=== PATIENT | male | born 1940 | race Caucasian/White ===

== ENCOUNTER 2019-01-23 12:33 | Inpatient (IN) | payer MEDICARE, OTHER ==
[~2019-01-23] VITALS: Ht 175.2 cm; Wt 103.6 kg
[~2019-01-23 12:33] MED LIST: ALDACTONE25 M1 PO; AMLODIPINE BESYL5 MG PO; ASPIRIN CHEWABL81 MG PO; COUMADIN4 M2 PO; GLUCOPHAGE1000 MG PO; LASIX40 MG PO; LEVOXYL112 MCG PO; LOPRESSOR25 MG PO; PRANDIN1 MG PO; VITAMIN B12-FO1 EACH PO; ZESTRIL30 M3 PO
[2019-01-23 12:34] VITALS: BP 135/51
[2019-01-23 13:58] VITALS: BP 142/58
[2019-01-23 15:06] LABS: BASO % 0.2 % (0.0-1.0); EOS # 0.1 10*3/uL (0.0-0.4); HEMATOCRIT 32.8 % (42.0-52.0); LYMPH # 0.9 10*3/uL (1.3-4.4); LYMPH % 9.1 % (27.0-41.0); MEAN CELL VOLUME 91.4 fl (80.0-94.0); MEAN CORPUSCULAR HGB 27.9 pg (27.0-31.0); MEAN CORPUSCULAR HGB CONC 30.5 g/dl (33.0-37.0); MEAN PLATELET VOLUME 11.1 fl (9.6-12.3); MONO # 1.1 10*3/uL (0.1-1.0); MONO % 11.9 % (3.0-9.0); NEUT # 7.4 10*3/uL (2.3-7.9); NEUT % 77.3 % (47.0-73.0); PLATELET COUNT AUTOMATED 199 10*3/uL (130-400); RED BLOOD COUNT 3.59 10*6/uL (4.50-5.90); WHITE BLOOD COUNT 9.6 10*3/uL (4.8-10.8)
[2019-01-23 15:22] LABS: ALBUMIN 3.2 gm/dl (3.1-4.5); CREATININE 1.68 mg/dL (0.70-1.30); POTASSIUM 4.7 mmol/L (3.5-5.1); TOTAL PROTEIN 7.1 gm/dL (6.4-8.2)
[2019-01-23 15:30] VITALS: BP 150/60
[2019-01-23] MEDS ORDERED: ALLOPURINOL300 MG PO (16:30)
[2019-01-23] MEDS ORDERED: ANORO ELLIPTA1 EACH INH (16:34)
[2019-01-23] MEDS ORDERED: PROAIR HFA8.5 GM INH (16:35)
--- NOTE | 2019-01-23 16:38 | NUR ---
MSADMTime: N A 78 year old MALE admitted to 4E under services of JÚNIOR SUGGS DO. Pt. arrived via bed from ER. Chief complaint: KNEE SWELLING/PAIN. JUANIS ZENDEJAS
[2019-01-23 20:00] VITALS: BP 112/59
--- NOTE | 2019-01-23 22:45 | NUR ---
PATIENT RESTING IN BED WITH EYES OPEN WATCHING TV. DENIES COMPLAINTS OF PAIN OR DISCOMFORT. RESPIRATIONS REGULAR AND NON-LABORED ON 3L O2 VIA N/C. LUNGS DIMINISHED BILATERALLY. BED ALARM ON. NO SIGNS OR SYMPTOMS OF DISTRESS NOTED. VITAL SIGNS STABLE. ABDOMEN SOFTLY DISTENDED WITH NORMOACTIVE BOWEL SOUNDS. 3+ BILATERAL LOWER EXTREMITY EDEMA NOTED. WILL CONTINUE TO MONITOR. CALL LIGHT IN REACH.
[2019-01-24] VITALS: BP 114/53
[2019-01-24 06:24] LABS: BASO % 0.3 % (0.0-1.0); EOS # 0.3 10*3/uL (0.0-0.4); EOS % 4.1 % (1.0-4.0); HEMATOCRIT 30.3 % (42.0-52.0); HEMOGLOBIN 9.3 g/dl (14.0-18.0); LYMPH % 12.9 % (27.0-41.0); MEAN CELL VOLUME 92.7 fl (80.0-94.0); MEAN CORPUSCULAR HGB 28.4 pg (27.0-31.0); MEAN CORPUSCULAR HGB CONC 30.7 g/dl (33.0-37.0); MEAN PLATELET VOLUME 11.3 fl (9.6-12.3); MONO # 1.1 10*3/uL (0.1-1.0); MONO % 13.8 % (3.0-9.0); NEUT # 5.4 10*3/uL (2.3-7.9); NEUT % 68.5 % (47.0-73.0); PLATELET COUNT AUTOMATED 202 10*3/uL (130-400); RED BLOOD COUNT 3.27 10*6/uL (4.50-5.90); RED CELL DISTRI WIDTH 15.2 % (0-14.5); WHITE BLOOD COUNT 7.9 10*3/uL (4.8-10.8)
[2019-01-24 06:51] LABS: ALBUMIN 2.9 gm/dl (3.1-4.5); CREATININE 1.62 mg/dL (0.70-1.30); FREE T4 1.18 ng/dl (0.76-1.46); PHOSPHOROUS 3.5 mg/dL (2.5-4.9); POTASSIUM 4.7 mmol/L (3.5-5.1); TOTAL PROTEIN 6.8 gm/dL (6.4-8.2)
[2019-01-24 06:56] LABS: THYROID STIM HORMONE (HS) 3.47 uIU/ml (0.358-4.75)
[2019-01-24 07:01] LABS: ACT PARTIAL THROMBO TIME 56.9 SECONDS (20.0-32.1)
[2019-01-24 08:00] VITALS: BP 119/50
[2019-01-24 08:20] LABS: VITAMIN D, 25-HYDROXY 19.7 ng/mL (30-100)
[2019-01-24 12:00] VITALS: BP 112/49
--- NOTE | 2019-01-24 14:51 | NUR ---
PT MEDICATED WITH PRN MORPHINE FOR C/O RIGHT KNEE PAIN. PT RATES PAIN 8/10. WILL MONITOR.
[2019-01-24 16:00] VITALS: BP 117/62
--- NOTE | 2019-01-24 16:00 | NUR ---
PRN MORPHINE EFFECTIVE PER PT.
[2019-01-24 20:00] VITALS: BP 120/55
--- NOTE | 2019-01-24 22:30 | NUR ---
PATIENT RESTING IN BED WITH EYES OPEN WATCHING TV. O2 ON AT 3L N/C. RESPIRATIONS REGULAR AND NON-LABORED. IV FLUIDS INFUSING AT 100CC/HR X1 BAG. DENIES COMPLAINTS OF PAIN OR DISCOMFORT AT THIS TIME. BED ALARM ON. PATIENT USES URINAL AND IS ALSO INCONTINENT OF URINE. NO SIGNS OR SYMPTOMS OF DISTRESS NOTED. WILL CONTINUE TO MONITOR. CALL LIGHT IN REACH.
[2019-01-25] VITALS: BP 125/49
--- NOTE | 2019-01-25 01:21 | NUR ---
24 HR chart check completed.
--- NOTE | 2019-01-25 06:00 | NUR ---
PATIENT REFUSED TO LET ME DO A BEDSIDE GLUCOSE TEST ON HIM. SAID HE IS DONE WITH EVERYTHING, THAT WE ARE DOING NOTHING FOR HIM AND HE IS LEAVING TODAY BECAUSE HE IS JUST DETERIORATING AND GETTING WORSE. MEDICATED WTIH MORPHINE FOR BACK PAIN AND BREATHING. WILL CONTINUE TO MONITOR. CALL LIGHT IN REACH.
[2019-01-25 08:00] VITALS: BP 151/61
--- NOTE | 2019-01-25 09:00 | NUR ---
Train Clerk in to talk to patient. Patient states lives at home with . There are few steps in the home. Physician: stalin laguna [facility] [place] [facility] services: none Patient's level of ADLs: MINIMAL ASSIST Patient has working utilities: all working DME: home oxygen, portable tanks from [facility] [facility], walker Follow-up physician's appointment after d/c: will be made by hospitalist nurse director upon discharge Does patient want to access PORTAL?: no Discharge plan discussed with patient, present, he lives at home with , uses a walker for ambulation and requires minimal assistanc with adls, stated lately he has be unable to ambulate, discussed with them a short term group home for rehab and they both were in agreement, patient stated he had been at [facility] a few months ago and would like to return, asked for a second choice also and they chose [facility] community development planner will make referrals, case management will follow. RICARDO CHAWLA
--- NOTE | 2019-01-25 10:10 | NUR ---
PHYSICAL THERAPY PT mayelin completed full report to follow, reccomend SNF at discharge discussed with pt and . Pt is moderate level of complexity-[id number]. PT to work on transfers, amb, strengthening, and ROM. Thank you. Annette Cooper PT
--- NOTE | 2019-01-25 10:30 | NUR ---
Occupational Therapy evaluation completed on 4 with full eval to follow. Precautions include fall risk,bed alarm,unsteady in standing, ww use for transfers,right knee pain/edema,high complexity level [id number]. Recommend OT per POC and SNF to enable return home w/ at max ability to function. Thank you. Jolie Pearson OTR/l
[2019-01-25 12:00] VITALS: BP 133/60
--- NOTE | 2019-01-25 12:04 | NUR ---
Nursing screen received and Occupational Therapy referral received. Thank you. Tam Pearson OTR/l
--- NOTE | 2019-01-25 13:10 | NUR ---
Patient requesting a referral to [facility], contacted facility and faxed referral. Requires a 3 night stay; waiting on review/acceptance.
--- NOTE | 2019-01-25 13:35 | NUR ---
OT NOTE Attempted to see pt this P.M. for OT session and upon arrival pt was sitting upright in the recliner while pt's was assisting with self care. Requesting to check back at a later time/date, no treatment provided at this time. Will continue with POC as able. STEVEN Hernadez/Karla
[2019-01-25 16:00] VITALS: BP 145/61
--- NOTE | 2019-01-25 18:34 | NUR ---
PHYSICAL THERAPY Nursing screen received and chart reviewed. Physical therapy order received and completed. Thank you. Maki Leslie,PT,DPT
[2019-01-25 20:00] VITALS: BP 145/50
--- NOTE | 2019-01-25 22:09 | NUR ---
PT REQUESTING "SLEEPING PILL" MEDICATED PER ORDER. WILL CONTINUE TO MONITOR FOR RELIEF. VOICES NO OTHER CONCERNS AT THIS TIME. RESTING IN BED. CALL LIGHT WITHIN REACH
--- NOTE | 2019-01-25 23:14 | NUR ---
RESTORIL EFFECTIVE. PATIENT SLEEPING. CALL LIGHT WITHIN REACH
[2019-01-26] VITALS: BP 135/63
--- NOTE | 2019-01-26 01:17 | NUR ---
Patient resting quietly in bed with no c/o discomfort. Respirations easy and regular. Vital signs stable. No overt distress. Bed alarm on. Call light within reach. VIRY STEPHENS
--- NOTE | 2019-01-26 01:47 | NUR ---
24 HR chart check completed.
--- NOTE | 2019-01-26 03:48 | NUR ---
Patient sleeping. Respirations relaxed and easy. Siderails up . [place] on. Bed alarm on. Call light within reach. HISSOM,VIRY
--- NOTE | 2019-01-26 07:22 | NUR ---
Patient has been accepted to [facility], 3 night stay complete. Patient can go when medically stable for discharge.
--- NOTE | 2019-01-26 07:35 | NUR ---
PHYSICAL THERAPY Patient seen this am 1:1 for therapy visit and was sitting up in bedside chair upon therapist arrival. Patient identified by name / and presented with continuos O2-3L via NC. Patient voices no new c/o's and performed sit to stand transfer from low chair surface with MOD A. Patient demonstrated increased difficulty upon initial rise secondary to POOR transfer technique and needed v/c for proper hand placement. Patient improved to MIN A upon second trial and ambulated with use of wh walker, CGA, 40'x 1, demonstrating "waddling" gait pattern, decreased stride and unsteady balance during all turns. Patient was also very cautious for fear of falling and returned to bedside chair with mild fatigue. Patient remained in chair with call light, tray table and telephone. Will continue per POC as tolerated, total treatment time 14 minutes. Fab Green, BROKERAGE COORDINATOR
--- NOTE | 2019-01-26 07:45 | NUR ---
OT NOTE Pt was seen this A.M. 1:1 for 20 minute OT session. Upon arrival pt was sitting upright in the recliner. Pt identified by name and and had no complaints at this time. Pt presented to therapy with continuous 3L-O2 via NC which he remained on throughout the entire session. Pt completed sit to stand transfer from chair level with modA and use of w/w for UE support. Educated pt on proper hand placement and improving his technique for increased I. Challenged pt's static standing tolerance needed for increased I in self care tasks and functional transfers, pt was able to tolerate aprox 3 mnutes at a time before sitting due to fatigue. Pt then completed functional mobility to the bathroom and back with CGA and use of w/w. Throughout pt required verbal prompts for taking bigger steps and was educated on safe turning technique due to LOB occuring to the R while turning that required Alexey to correct. Pt required two standing rest breaks throughout due to fatigue. Pt was left sitting upright in the recliner with call light in hand, tray table in place, and phone in reach. COntinue with rec D/C plan to SNF. STEVEN Hernadez/Karla
[2019-01-26 08:00] VITALS: BP 136/55
--- NOTE | 2019-01-26 09:00 | NUR ---
case management visits with patient, he will be discharged to [facility] today, search planner will make transportation arrangements, no other needs at this time
[2019-01-26] MEDS ORDERED: PREDNISONE10 MG PO (10:53)
[2019-01-26] MEDS ORDERED: VITAMIN D32000 UNI1 PO (10:53)
--- NOTE | 2019-01-26 11:12 | NUR ---
patient is discharged to [facility]; transportation scheduled for 12 noon with [place]. NH, nursing/chief steward/stewardess and all notified.
--- NOTE | 2019-01-26 11:57 | NUR ---
ATTEMPTING TO CALL REPORT TO [facility], PLACED ON HOLD.
--- NOTE | 2019-01-26 12:01 | NUR ---
SECOND ATTEMPT TO GIVE REPORT WAS SENT TO VOICEMAIL. VOICEMAIL LEFT WITH CALLBACK NUMBER ON "[facility] SPECIAL[facility] KENDY'S" LINE.
--- NOTE | 2019-01-26 12:15 | NUR ---
Discharge instructions reviewed with patient/family. Patient receptive and verbalizes understanding. Follow-up care arranged. Written instructions given to patient/family. HÉCTOR DASH
--- NOTE | 2019-01-27 08:37 | NUR ---
OCCUPATIONAL THERAPY CO-SIGN I approve of the Occupational Therapy notes written above. JACLYN HUNG OTR/Karla
--- NOTE | 2019-01-27 11:18 | NUR ---
PHYSICAL THERAPY CO-SIGN I approve of the Physical Therapy notes written above. Annette Cooper PT
== END 2019-01-26 12:15 | disposition other institution (70) | DRG 553 ==
LOC: ED 12:33 → 4E 15:13
PROVIDERS: Hospitalist; Nurse Practitioner Family; ADMIT Internal Medicine
DX: M10.9 Gout, unspecified (principal); N17.0 Acute kidney failure with tubular necrosis; J96.11 Chronic respiratory failure with hypoxia; I13.0 Hypertensive heart and chronic kidney disease with heart failure and stage 1 through stage 4 chronic kidney disease, or unspecified chronic kidney disease; R26.2 Difficulty in walking, not elsewhere classified; R53.1 Weakness; E11.65 Type 2 diabetes mellitus with hyperglycemia; I25.119 Atherosclerotic heart disease of native coronary artery with unspecified angina pectoris; I48.0 Paroxysmal atrial fibrillation; E78.5 Hyperlipidemia, unspecified; I50.9 Heart failure, unspecified; Z66 Do not resuscitate; Z51.5 Encounter for palliative care; E03.9 Hypothyroidism, unspecified; D64.9 Anemia, unspecified; E66.9 Obesity, unspecified; E11.22 Type 2 diabetes mellitus with diabetic chronic kidney disease; N18.3 Chronic kidney disease, stage 3 (moderate); Z88.6 Allergy status to analgesic agent; Z88.1 Allergy status to other antibiotic agents; Z88.8 Allergy status to other drugs, medicaments and biological substances; Z90.49 Acquired absence of other specified parts of digestive tract; Z95.1 Presence of aortocoronary bypass graft; Z95.0 Presence of cardiac pacemaker; Z87.891 Personal history of nicotine dependence; Z85.89 Personal history of malignant neoplasm of other organs and systems; Z83.2 Family history of diseases of the blood and blood-forming organs and certain disorders involving the immune mechanism; I25.2 Old myocardial infarction; Z79.899 Other long term (current) drug therapy; Z79.82 Long term (current) use of aspirin; Z79.01 Long term (current) use of anticoagulants; Z68.33 Body mass index [BMI] 33.0-33.9, adult

== ENCOUNTER 2019-05-15 12:58 | Inpatient (IN) | payer MEDICARE, OTHER ==
[~2019-05-15] VITALS: Ht 177.8 cm; Wt 98.1 kg
[2019-05-15] VITALS (8 sets, daily range): BP systolic 110–136; BP diastolic 40–80
[~2019-05-15 12:58] MED LIST changes: +ALLOPURINOL300 MG PO; +ANORO ELLIPTA1 EACH INH; +PREDNISONE10 MG PO; +PROAIR HFA8.5 GM INH; +VITAMIN D32000 UNI1 PO
--- NOTE | 2019-05-15 13:16 | NUR ---
PT WAS 85 4L NC HE WAS PLACED ON NON REBREATHER MASK UPON ARRIVAL
[2019-05-15 13:21] LABS: BASO % 0.1 % (0.0-1.0); EOS # 0.2 10*3/uL (0.0-0.4); EOS % 2.9 % (1.0-4.0); HEMATOCRIT 29.4 % (42.0-52.0); HEMOGLOBIN 8.6 g/dl (14.0-18.0); MEAN CELL VOLUME 91.6 fl (80.0-94.0); MEAN CORPUSCULAR HGB 26.8 pg (27.0-31.0); MEAN CORPUSCULAR HGB CONC 29.3 g/dl (33.0-37.0); MEAN PLATELET VOLUME 10.3 fl (9.6-12.3); MONO # 0.8 10*3/uL (0.1-1.0); MONO % 11.1 % (3.0-9.0); NEUT # 5.3 10*3/uL (2.3-7.9); NEUT % 72.2 % (47.0-73.0); PLATELET COUNT AUTOMATED 261 10*3/uL (130-400); RED BLOOD COUNT 3.21 10*6/uL (4.50-5.90); RED CELL DISTRI WIDTH 15.9 % (0-14.5); WHITE BLOOD COUNT 7.3 10*3/uL (4.8-10.8)
[2019-05-15 13:31] LABS: ACT PARTIAL THROMBO TIME 65.9 SECONDS (20.0-32.1); INTERNATIONAL NORM RATIO 2.6 (2.0-3.5)
[2019-05-15 13:51] LABS: ALKALINE PHOSPHATASE 116 U/L (45-117); BUN 57 mg/dl (7-24); CHLORIDE 106 mmol/L (98-107); CREATININE 2.23 mg/dL (0.70-1.30); POTASSIUM 5.2 mmol/L (3.5-5.1); SGOT/AST 19 IU/L (3-35); SGPT/ALT 19 U/L (12-78); SODIUM 138 mmol/L (136-145); TOTAL PROTEIN 6.9 gm/dL (6.4-8.2)
[2019-05-15 13:53] LABS: TROPONIN I < 0.015 ng/ml (<0.045)
--- NOTE | 2019-05-15 13:53 | NUR ---
PT REQUESTED HANNAH CATH BE PLACED HE IS GOING TO BE GETTING IV LASIX IS AWARE AND OK WITH HANNAH BEING PUT IN
--- NOTE | 2019-05-15 14:15 | NUR ---
PLACED PT ON NC 4L TO SEE IF OXYGEN WOULD STAY GOOD BUT WITHIN 5 MINUTES OXYGEN WAS BACK DOWN TO 88 NO REBREATHER RE-APPLIED FAMILY AT BEDSIDE
--- NOTE | 2019-05-15 15:28 | NUR ---
Time: 1519 A 78 year old MALE admitted to 5E under services of VISH ALEXANDRE DO. Pt. arrived via being carried from ER. Chief complaint: CHF. VARINDER EDUARDO
[2019-05-15] MEDS ORDERED: VITAMIN B12 PO (15:40)
[2019-05-15] MEDS ORDERED: MUPIROCIN15 GM T (15:43)
[2019-05-15] MEDS ORDERED: NATURE'S BLEND F1 MG PO (15:48)
--- NOTE | 2019-05-15 17:20 | NUR ---
PATIENT PLACED ON OPTI-FLOW 70%, 40 L/M. PULSE OX 93%.
--- NOTE | 2019-05-15 17:50 | NUR ---
NOTIFIED OF BLOOD IN HANNAH, PT DENIES PAIN
--- NOTE | 2019-05-15 20:41 | NUR ---
PATIENT SITTING UP IN BED AT THIS TIME. PATIENT DENIES ANY SHORTNESS OF BREATHE WHILE ON THE OPTIFLOW. PATIENT HAS 3+ BLE NOTED AND REPORTS BREATHING HAD BEEN WORSENING FOR OVER A WEEK. PATIENT HAS A HANNAH WITH [place] URINE OBSERVED. NO PAIN OR DISTRESS NOTED THROUGHOUT ASSESSMENT. CALL LIGHT WITHIN REACH. SEE ASSESSMENT
[2019-05-16] VITALS: BP 127/50
[2019-05-16 06:50] LABS: BASO % 0.1 % (0.0-1.0); EOS # 0.3 10*3/uL (0.0-0.4); EOS % 4.4 % (1.0-4.0); HEMATOCRIT 27.1 % (42.0-52.0); LYMPH # 0.8 10*3/uL (1.3-4.4); LYMPH % 11.7 % (27.0-41.0); MEAN CELL VOLUME 90.9 fl (80.0-94.0); MEAN CORPUSCULAR HGB 26.8 pg (27.0-31.0); MEAN CORPUSCULAR HGB CONC 29.5 g/dl (33.0-37.0); MEAN PLATELET VOLUME 11.2 fl (9.6-12.3); MONO # 0.9 10*3/uL (0.1-1.0); NEUT # 4.8 10*3/uL (2.3-7.9); NEUT % 70.5 % (47.0-73.0); PLATELET COUNT AUTOMATED 265 10*3/uL (130-400); RED BLOOD COUNT 2.98 10*6/uL (4.50-5.90); RED CELL DISTRI WIDTH 15.8 % (0-14.5); WHITE BLOOD COUNT 6.9 10*3/uL (4.8-10.8)
[2019-05-16 07:16] LABS: ALBUMIN 2.8 gm/dl (3.1-4.5); POTASSIUM 4.7 mmol/L (3.5-5.1)
--- NOTE | 2019-05-16 07:21 | NUR ---
PHYSICAL THERAPY PT EVAL COMPLETED ON LEVEL 5: FULL EVAL TO FOLLOW. RECOMMEND PT WHILE HERE TO ADDRESS DECREASED STRNEGTH, ENDURANCE, BALANCE AND THUS DECREASED FUNCTIONAL MOBILITY. PT EVAL IS MODERATE COMPLEXITY: [id number].D/C RECOMMENDATIONS AT THIS TIME ARE FOR SNF BASED ON CURRENT FUNCTIONAL STATUS. THANK YOU FOR REFERRAL CANDIE VARMA PT
[2019-05-16 07:25] LABS: CREATININE 1.77 mg/dL (0.70-1.30); FREE T4 1.33 ng/dl (0.76-1.46); PHOSPHOROUS 3.5 mg/dL (2.5-4.9); THYROID STIM HORMONE (HS) 0.41 uIU/ml (0.358-4.75); TOTAL PROTEIN 6.2 gm/dL (6.4-8.2)
[2019-05-16 07:42] LABS: VITAMIN D, 25-HYDROXY 27.9 ng/mL (30-100)
[2019-05-16 08:00] VITALS: BP 113/42
[2019-05-16 12:00] VITALS: BP 103/47
--- NOTE | 2019-05-16 12:31 | NUR ---
AWARE OF CONSULT. REQUESTED ECHO TO BE ORDERED. SAID HE WILL SEE PT TOMORROW.
[2019-05-16 13:54] LABS: ABG BASE EXCESS 2.2 mmol/L (-2.0-2.0); ARTERIAL BLOOD GAS PH 7.403 (7.35-7.45)
--- NOTE | 2019-05-16 15:36 | NUR ---
PLACED BIPAP IN PTS ROOM. PT REFUSED TO WEAR TILL TONIGHT. HE HAD FAMILY MEMBERS IN ROOM VISITING. PTS SPO2 97% ON OPTIFLOW 70%/40 L, TITRATED TO 60%/40L.
[2019-05-16 16:00] VITALS: BP 107/39
[2019-05-17] VITALS: BP 103/44
[2019-05-17 06:26] LABS: BASO % 0.3 % (0.0-1.0); EOS # 0.3 10*3/uL (0.0-0.4); EOS % 4.5 % (1.0-4.0); HEMATOCRIT 24.9 % (42.0-52.0); HEMOGLOBIN 7.3 g/dl (14.0-18.0); LYMPH # 0.9 10*3/uL (1.3-4.4); LYMPH % 12.3 % (27.0-41.0); MEAN CELL VOLUME 92.9 fl (80.0-94.0); MEAN CORPUSCULAR HGB 27.2 pg (27.0-31.0); MEAN CORPUSCULAR HGB CONC 29.3 g/dl (33.0-37.0); MEAN PLATELET VOLUME 11.4 fl (9.6-12.3); MONO # 0.9 10*3/uL (0.1-1.0); NEUT # 5.3 10*3/uL (2.3-7.9); NEUT % 70.5 % (47.0-73.0); PLATELET COUNT AUTOMATED 240 10*3/uL (130-400); RED BLOOD COUNT 2.68 10*6/uL (4.50-5.90); RED CELL DISTRI WIDTH 15.9 % (0-14.5); WHITE BLOOD COUNT 7.5 10*3/uL (4.8-10.8)
[2019-05-17 06:55] LABS: INTERNATIONAL NORM RATIO 2.3 (2.0-3.5)
[2019-05-17 06:58] LABS: ALBUMIN 2.6 gm/dl (3.1-4.5); CREATININE 1.79 mg/dL (0.70-1.30); POTASSIUM 4.6 mmol/L (3.5-5.1); URIC ACID 4.6 mg/dL (3.5-7.2)
--- NOTE | 2019-05-17 07:40 | NUR ---
PT REFUSING BIPAP. PT USING OPTIFLOW AT 65% WITH 40% FLOW. SAT IS 97%. RN NOTIFIED.
[2019-05-17 08:00] VITALS: BP 117/50
--- NOTE | 2019-05-17 08:06 | NUR ---
PHYSICAL THERAPY Screen and eval received pt has been evaluated and is on caseload thank you Annette Cooper PT
--- NOTE | 2019-05-17 09:00 | NUR ---
Ski Maker Wood in to talk to patient. Patient states lives at home with . There are no steps in the home. Physician: [facility]acy: [facility] Home health services: none Patient's level of ADLs: MODERATE ASSIST Patient has working utilities: all working DME: hospital bed, lift chair, bipap that he doesn't wear, home oxygen portable tanks from [facility] Follow-up physician's appointment after d/c: will be made by hospitalist nurse director upon discharge Does patient want to access PORTAL?: no Discharge plan discussed with patient and , states he lives at home with her, has a hospital bed, lift chair, home oxygen and a bipap he doesn't wear. stated he hasn't ambulated much in a long while, discussed with them a short term retirement and they were receptive to this, given choice of facilities they chose [facility], roxana project planner will send a referral to [facility] for when patient is medically stable for discharge. RICARDO CHAWLA
--- NOTE | 2019-05-17 09:50 | NUR ---
PHYSICAL THERAPY Patient seen this am 1:1 for therapy visit and was resting supine in bed upon therapist arrival. Patient identified by name / and was joined by his this session. Patient presented with Hi Flow O2, recording resting SpO2 94%, HR 69 bpm. Patient transfers supine to sit EOB with MOD A, tolerating static EOB sit 8-9 minutes, SBA. Patient able to perform seated B LE therex, all planes x 10 reps each and completed sit to stand transfer, FIXTURE MAKER/MOD. Patient side step to R 3-4 steps for HOB positioning and returned to supine in bed with MOD A. Patient remained in bed with HOB elevated, call light, tray table, telephone and bed alarm for safety. Patient reports increased fatigue following treatment and will continue per POC as tolerated, total treatment time 23 minutes. Fab Green, FENCE SUPERVISOR
[2019-05-17 12:00] VITALS: BP 106/47
--- NOTE | 2019-05-17 13:00 | NUR ---
ORE FEEDER faxed referral on this date to [facility]. Patient has been accepted for SNF days. Step down to facility discussed with patient and who are agreeable. ORE FEEDER will continue to follow and provide any support as needed.
--- NOTE | 2019-05-17 15:34 | NUR ---
Occupational therapy orders and nursing screen received. Will follow up with the patient for completion of the OT evaluation. Thank you. Sharon Valencia, OTR/L
[2019-05-17 16:00] VITALS: BP 117/62
--- NOTE | 2019-05-17 16:39 | NUR ---
PT SAT IS 96% ON 55% FIO2 AND 40L/M. NO C/O. PT STATED TO LEAVE HIS O2 DEVICE. DOES NOT WANT A MASK. RN INFORMED.
[2019-05-17 20:00] VITALS: BP 125/42
[2019-05-18] VITALS: BP 117/47
[2019-05-18 07:06] LABS: BASO % 0.2 % (0.0-1.0); EOS # 0.4 10*3/uL (0.0-0.4); EOS % 4.2 % (1.0-4.0); HEMATOCRIT 27.4 % (42.0-52.0); HEMOGLOBIN 8.2 g/dl (14.0-18.0); LYMPH # 0.9 10*3/uL (1.3-4.4); LYMPH % 9.7 % (27.0-41.0); MEAN CELL VOLUME 92.6 fl (80.0-94.0); MEAN CORPUSCULAR HGB 27.7 pg (27.0-31.0); MEAN CORPUSCULAR HGB CONC 29.9 g/dl (33.0-37.0); MEAN PLATELET VOLUME 9.9 fl (9.6-12.3); MONO # 1.1 10*3/uL (0.1-1.0); MONO % 12.3 % (3.0-9.0); NEUT # 6.5 10*3/uL (2.3-7.9); NEUT % 73.3 % (47.0-73.0); PLATELET COUNT AUTOMATED 251 10*3/uL (130-400); RED BLOOD COUNT 2.96 10*6/uL (4.50-5.90); RED CELL DISTRI WIDTH 15.9 % (0-14.5); WHITE BLOOD COUNT 8.9 10*3/uL (4.8-10.8)
[2019-05-18 08:00] VITALS: BP 122/77
--- NOTE | 2019-05-18 08:07 | NUR ---
Patient accepted to [facility]. 3 night stay complete. Ok to go when stable.
--- NOTE | 2019-05-18 08:23 | NUR ---
PHYSICAL THERAPY Patient is eating breakfast at this time. Will check back later with patient. EDUARDO FONSECA CALCINE FURNACE TENDER
--- NOTE | 2019-05-18 09:45 | NUR ---
PT. TAKEN OFF OPTIFLOW AND PLACED ON 6L NC. PT. TOLERATED WELL WITH NO INCREASED WOB OR C/O SHORTNESS OF BREATH. SPO2 98% ON 6L. DECREASED FLOW TO 5L PRESCRIBED AT HOME PER . SPO2 REMAINED AT 94-97%. WILL CONTINUE TO MONITOR. RN NOTIFIED.
--- NOTE | 2019-05-18 11:37 | NUR ---
CATHETER REMOVE. TOLERATED WELL.
[2019-05-18 11:47] LABS: INTERNATIONAL NORM RATIO 2.1 (2.0-3.5)
[2019-05-18 12:00] VITALS: BP 118/52
--- NOTE | 2019-05-18 14:05 | NUR ---
PHYSICAL THERAPY TREATMENT TIME: 2:05 PM OUT Patient presented to therapy in sitting at EOB with his visiting in room with patient. Patient gives informed consent for treatment. Patient was identified by name and on wristband. Patient is on 5 liters of spO2 VIA NASAL CANULA. Patient performed sit to stand from EOB with MAX A X 1-2. Patient required verbal cues for pushing off the bed with hands. Patient had to sit on EOB in < 20 seconds due to his knees buckling. Patient attempted sit to stand again from EOB with MAX A X 1-2. Patient stood for < 15 seconds and then had to sit EOB. Patient sit to stand from EOB with MAX A X 1-2. Patient again required verbal cues for proper hand placement and locking knees into extension upon standing. Patient performed seated bilateral LAQs x 10 reps each for strengthening. PATIENT QUICKLY FATIGUED AND HAD OT STOP THERAPY SESSION. Patient was left in sitting on EOB with tray table in front of him, 5 liters of spO2 connected to wall outlet and call light within reach. Patient's was left in room visiting with patient. Patient's bed alarm was activated. Patient was 1:1 with this MANAGEMENT NURSE RN for 20 minutes total. EDUARDO FONSECA MANAGEMENT NURSE RN
[2019-05-18 16:00] VITALS: BP 118/52
[2019-05-18 20:00] VITALS: BP 119/42
[2019-05-19] VITALS: BP 124/61
--- NOTE | 2019-05-19 00:30 | NUR ---
PATIENT UNABLE TO URINATE SINCE HAVING HANNAH REMOVED THIS AFTERNOON. BLADDERED SCANNED PATIENT FOR >999. NOTIFIED DR. HERRERA. STATES TO STRAIGHT CATH PATIENT
--- NOTE | 2019-05-19 00:40 | NUR ---
STRAIGHT CATHED PATIETN FOR 1300CC OF STRAW COLORED URINE. PATIENT TOLERATED WELL. WILL CONTINUE TO MONITOR.
[2019-05-19 02:37] VITALS: BP 136/50
--- NOTE | 2019-05-19 05:30 | NUR ---
BLADDER SCANNED PATIENT FOR AROUND 480CC, STRAIGHT CATHED PATIENT FOR 450CC OF SRAW URINE. PATIENT TOELRATED WELL. WILL CONTINUE TO MONITOR.
[2019-05-19 06:43] LABS: INTERNATIONAL NORM RATIO 1.9 (2.0-3.5)
[2019-05-19 08:00] VITALS: BP 119/50
--- NOTE | 2019-05-19 09:11 | NUR ---
hospital exemption completed for [facility]. patient accepted, 3 night stay complete. Patient is ok to go when medically stable for discharge.
[2019-05-19 10:07] LABS: BASO % 0.2 % (0.0-1.0); EOS # 0.3 10*3/uL (0.0-0.4); EOS % 3.5 % (1.0-4.0); HEMATOCRIT 25.6 % (42.0-52.0); HEMOGLOBIN 7.6 g/dl (14.0-18.0); LYMPH # 0.7 10*3/uL (1.3-4.4); LYMPH % 7.8 % (27.0-41.0); MEAN CELL VOLUME 92.4 fl (80.0-94.0); MEAN CORPUSCULAR HGB 27.4 pg (27.0-31.0); MEAN CORPUSCULAR HGB CONC 29.7 g/dl (33.0-37.0); MEAN PLATELET VOLUME 10.8 fl (9.6-12.3); MONO # 0.8 10*3/uL (0.1-1.0); NEUT # 7.2 10*3/uL (2.3-7.9); NEUT % 79.2 % (47.0-73.0); PLATELET COUNT AUTOMATED 252 10*3/uL (130-400); RED BLOOD COUNT 2.77 10*6/uL (4.50-5.90); RED CELL DISTRI WIDTH 15.8 % (0-14.5); WHITE BLOOD COUNT 9.1 10*3/uL (4.8-10.8)
[2019-05-19] MEDS ORDERED: ZITHROMAX500 MG PO (10:12)
[2019-05-19] MEDS ORDERED: OMNICEF300 MG PO (10:13)
[2019-05-19] MEDS ORDERED: LOPRESSOR25 MG PO (10:17)
[2019-05-19] MEDS ORDERED: Humalog SQ (10:17)
[2019-05-19] MEDS ORDERED: APRESOLINE10 MG PO (10:17)
[2019-05-19] MEDS ORDERED: ALLOPURINOL100 MG PO (10:17)
[2019-05-19] MEDS ORDERED: REMEDY CALAZIME4 GM T (10:17)
[2019-05-19] MEDS ORDERED: BISACODYL LAXATI5 MG PO (10:17)
[2019-05-19] MEDS ORDERED: Accuneb 0.1.25 MG/3 NEB (10:17)
[2019-05-19] MEDS ORDERED: COUMADIN3 M1 PO (10:17)
[2019-05-19 10:21] LABS: ALBUMIN 2.7 gm/dl (3.1-4.5); CREATININE 1.79 mg/dL (0.70-1.30); POTASSIUM 4.5 mmol/L (3.5-5.1); TOTAL PROTEIN 6.3 gm/dL (6.4-8.2)
--- NOTE | 2019-05-19 10:30 | NUR ---
Occupational Therapy evaluation completed on five with full evaluation to follow. Recommend occupational therapy per plan of care and SNF upon discharge. Thank you for this referral. Sharon Valencia OTR/L
--- NOTE | 2019-05-19 10:35 | NUR ---
PHYSICAL THERAPY Patient seen this am 1:1 for therapy visit and was resting supine in bed upon therapist arrival. Patient identified by name / , reporting no new c/o's at this time. Patients and Daughter were both present for observation this session as patient presented with contiuous O2-5L via NC. Patient resting SpO2 was 92%, HR 60 bpm prior to treatment as patient transfers supine to sit EOB with MOD, tolerating several minutes static EOB sit SBA. Patient performed several sit to stand transfers, MIN A, use of wh walker, standing support, tolerating < 1 minute static stand each trial. Patient second /third trial was MOD A x 2 secondary to increased fatigue, recording 93% SpO2, HR 107 bpm. Patient returned to supine in bed and remained with call light, tray table, bed alarm for safety. Patient SpO2 dropped to 88%, then following rest break returned to 93% SpO2, HR 67 bpm. Will continue per POC as tolerated, total treatment time 15 minutes. Fab Green, MANAGEMENT TRAINER
--- NOTE | 2019-05-19 11:51 | NUR ---
RELIABILITY MANAGER setup transfer and discharge. Patient to discharge to [facility] on this date. Unit notified, ambulance setup, nursing facility notified with paperwork. Discharge to occur 1330.
--- NOTE | 2019-05-19 13:35 | NUR ---
PT DISCHARGED TO [facility] AT THIS TIME. BRIELLE INTACT. [place] REMOVED. PT TRANSPORTED VIA [facility]. VSS. REPORT GIVEN TO RECIEVING UNIT.
--- NOTE | 2019-05-21 07:19 | NUR ---
PHYSICAL THERAPY CO-SIGN I approve of the Physical Therapy notes written above. Annette Cooper PT
== END 2019-05-19 13:35 | disposition other institution (70) | DRG 177 ==
LOC: ED 12:58 → 5E 14:49 → EDHOLD 14:49 → 5E 14:54
PROVIDERS: Emergency Medicine; Internal Medicine; Internal Medicine Critical Care Medicine; Registered Nurse; Student in an Organized Health Care Education/Training Program; ADMIT Internal Medicine
DX: J15.6 Pneumonia due to other Gram-negative bacteria (principal); N17.0 Acute kidney failure with tubular necrosis; J96.21 Acute and chronic respiratory failure with hypoxia; E44.0 Moderate protein-calorie malnutrition; D68.59 Other primary thrombophilia; I13.0 Hypertensive heart and chronic kidney disease with heart failure and stage 1 through stage 4 chronic kidney disease, or unspecified chronic kidney disease; I48.21 Permanent atrial fibrillation; I50.9 Heart failure, unspecified; N18.3 Chronic kidney disease, stage 3 (moderate); E87.5 Hyperkalemia; E03.9 Hypothyroidism, unspecified; E53.8 Deficiency of other specified B group vitamins; D64.9 Anemia, unspecified; E66.9 Obesity, unspecified; R26.2 Difficulty in walking, not elsewhere classified; E11.22 Type 2 diabetes mellitus with diabetic chronic kidney disease; J43.9 Emphysema, unspecified; I25.10 Atherosclerotic heart disease of native coronary artery without angina pectoris; Z66 Do not resuscitate; Z51.5 Encounter for palliative care; I48.0 Paroxysmal atrial fibrillation; E11.65 Type 2 diabetes mellitus with hyperglycemia; Z88.6 Allergy status to analgesic agent; Z88.8 Allergy status to other drugs, medicaments and biological substances; Z88.1 Allergy status to other antibiotic agents; Z91.81 History of falling; Z85.89 Personal history of malignant neoplasm of other organs and systems; Z90.49 Acquired absence of other specified parts of digestive tract; Z95.1 Presence of aortocoronary bypass graft; Z87.891 Personal history of nicotine dependence; Z84.89 Family history of other specified conditions; I25.2 Old myocardial infarction; Z99.81 Dependence on supplemental oxygen; Z79.899 Other long term (current) drug therapy; Z79.82 Long term (current) use of aspirin; Z79.01 Long term (current) use of anticoagulants; Z68.33 Body mass index [BMI] 33.0-33.9, adult